=== PATIENT | male | born 1925 | race Caucasian/White ===

== ENCOUNTER 2017-04-13 09:00 | Inpatient (IN) | payer MEDICARE ==
[2017-04-13] MEDS ORDERED: TYLENOL 325 MG PO PRN (12:25)
[2017-04-13] MEDS ORDERED: Zofran 4 MG/2 ML VIAL IV PRN (12:25)
[2017-04-13 13:26] LABS: Mean Cell Volume 104.8 fl (78-100); Mean Corpuscular Hemoglobin 33.7 pg (26-32); Mean Platelet Volume 11.4 fl (6-9.5); Platelet Count 90 K/mm3 (150-450); Red Blood Count 2.49 M/mm3 (4.1-5.6); Red Cell Distribution Width 16.3 % (11.5-14.0); White Blood Count 6.3 K/mm3 (4.0-10.5)
[2017-04-13 14:15] LABS: ALBUMIN 3.8 g/dL (3.4-5.0); ANION GAP 18.1 MEQ/L (5-15); BILIRUBIN,TOTAL 0.8 mg/dL (0.2-1.0); Carbon Dioxide 20.9 mEq/L (21-32); Potassium 4.2 mEq/L (3.5-5.1); Total Protein 7.3 gm/dL (6.4-8.2)
[2017-04-13 14:31] LABS: BAND 3 % (0.0-2.0); Eosinophil 3 % (0.00-3.0); Total Cells Counted 100
[2017-04-13 14:32] LABS: ANISOCYTOSIS 1+
[2017-04-13 14:36] LABS: Ovalocytes 1+
--- NOTE | 2017-04-13 14:47 | XRAY ---
Indication: Short of breath. Comparison: January 13, 2017. PA/lateral chest unchanged again hyperinflated with chronic lung markings, right base atelectasis/scarring, cardiomegaly, CABG surgery, and left-sided dual-lead pacemaker. No new cardiopulmonary abnormalities.
[2017-04-13] MEDS: Protonix 40MG Tablet PO SCH (14:48)
[2017-04-13 14:51] LABS: Platelet Estimate DECREASED (NORMAL)
--- NOTE | 2017-04-13 15:51 | XRAY ---
Indication: Distended abdomen. Multiple contiguous axial images obtained through the abdomen and pelvis without contrast as ordered. Comparison: July 05, 2008. Lung bases demonstrates new cardiomegaly with small bibasilar effusions/atelectasis and interstitial edema. There is new small pelvic free fluid and tiny fluid along both colic gutters. No walled off fluid collection or free air. Stomach is moderately distended with food. Noncontrasted bowel loops appear nonobstructed. Again scattered colonic diverticulosis. Appendix not seen. Gallbladder is now moderately distended without gallstones or abnormal biliary distention. There are again 2 hepatic cysts, largest in the left lobe measuring 2 cm. Again hepatic/splenic calcified granulomas. Right kidney now appears atrophic. Remaining liver, gallbladder, pancreas, spleen, adrenal glands, kidneys, ureters, and bladder appear unremarkable for noncontrast exam. Progressive worsening severe arteriosclerotic calcifications including both intra-and extrarenal arteries. There may be high-grade stenosis/occlusion of the right main renal artery which could explain renal atrophy. New right external iliac stent graft. Lack of IV contrast precludes evaluation for stent patency. Osseous structures intact with progressive worsening degenerative changes throughout the spine and new remote-appearing L1 inferior endplate fracture with approximately 25% height loss. Again small fatty left inguinal hernia. Impression: 1. New cardiomegaly with bibasilar effusions and interstitial edema. Rule out cardiac decompensation. 2. New small abdominal/pelvic free fluid that may or may not be related to cardiac decompensation. 3. Distended gallbladder. Gallbladder sonogram may yield further information if clinically warranted. 4. Again incidental hepatic cysts, colonic diverticulosis, and fatty left inguinal hernia. 5. Severely worsening arteriosclerotic disease with probable high-grade stenosis/occlusion of the right main renal artery with subsequent right renal atrophy. 6. New finding for remote L1 inferior endplate fracture. CT DI 16.28
[2017-04-13] MEDS ORDERED: Lasix 40 MG/4 ML IV ONE (17:44)
--- NOTE | 2017-04-13 17:54 | PCM.HP ---
History of Present Illness - Chief Complaint Chief Complaint: weakness, anemia, shortness of breath Date: 04/13/17 History of Present Illness: is a 89 year old male. He has been feeling increasingly weak and short of breath with exertion the last several weeks. He follows with weakly hgb levels. Last week he had some diarrhea and this improved but then his abdomen has been more distended. he has no chest pain no nausea or vomiting still some tenderness intermittently in the abdomen. no fever or chills. He has a high salt diet as he lives alone and eats take out. He ate [employer] food then ham and beans before the symptoms seemed to worsen and he reports drinking "lots of water to try to feel better" - Review of Systems Constitutional: Fatigue, Weakness, No Fever, No Chills Eyes: No Symptoms Ears, Nose, & Throat: No Symptoms Respiratory: No Cough, No Short Of Breath Cardiac: Edema, No Chest Pain, No Syncope Abdominal/Gastrointestinal: Abdominal Pain, No Nausea, No Vomiting, No Diarrhea Genitourinary Symptoms: No Dysuria, No Frequency, No Hematuria, No Urgency, No Urinary Retention, No Flank Pain Musculoskeletal: No Back Pain, No Neck Pain Skin: No Rash Neurological: No Dizziness, No Focal Weakness, No Sensory Changes Psychological: No Symptoms Endocrine: No Symptoms Hematologic/Lymphatic: No Symptoms Immunological/Allergic: No Symptoms Medications & Allergies Home Medications: Home Medication List Nifedipine [Nifedipine ER] 60 mg PO HS 04/04/14 [History Confirmed 04/13/17] Metoprolol Tartrate 25 mg [Lopressor 25MG Tab] 2 tab PO BID 05/29/14 [ History Confirmed 04/13/17] Clopidogrel Bisulfate 75 mg [PLAVIX 75 MG Tablet] 37.5 mg PO DAILY [History Confirmed 04/13/17] Isosorbide Mononitrate 30 mg [Imdur 30 MG] 30 mg PO LUNCH 03/27/15 [ History Confirmed 04/13/17] Simvastatin [Zocor] 20 mg PO HS 10/26/15 [History Confirmed 04/13/17] Allopurinol 100 mg [Zyloprim 100 mg] 2 tab PO 1200 11/07/16 [History Confirmed 04/13/17] B2/Vit A,C & E/Lut/Zeaxanth/Mn [Icaps Tablet] 1 each PO DAILY 04/13/17 [History Confirmed 04/13/17] Furosemide 40 mg [Lasix 40 MG] 2 tab PO DAILY 04/13/17 [History Confirmed 04/13/17] Vitamin E 1,000 unit PO 1200 04/13/17 [History Confirmed 04/13/17] Allergies/Adverse Reactions: Allergies Allergy/AdvReac Type Severity Reaction Status Date / Time midazolam HCl [From Versed] Allergy Mild Hives Verified 04/13/17 12:41 Sulfa (Sulfonamide Allergy Mild Hives Verified 04/13/17 12:41 Antibiotics) [Sulfa(Sulfonamide Antibiotics)] - Past Medical History Past Medical History: Yes Neurological History: No Pertinent History ENT History: Cataracts, Macular Degeneration Cardiac History: Angina, Arrhythmia, High Cholesterol, Hypertension Respiratory History: Sleep Apnea Endocrine Medical History: No Pertinent History Musculoskelatal History: Other GI Medical History: Diverticulitis History: Renal Disease Pyscho-Social History: No Pertinent History Male Reproductive Disorders: No Pertinent History Comment: jayce cataract removal - Past Surgical History Past Surgical History: Yes Neuro Surgical History: No Pertinent History Cardiac History: CABG, Pacemaker Respiratory Surgery: No Pertinent History GI Surgical History: No Pertinent History Genitourinary Surgical Hx: No Pertinent History Musculskeletal Surgical Hx: Orthopedic Surgery Male Surgical History: No Pertinent History Other Surgical History: bilat rotator cuff. vein surgery-groin. 'kidney tube repaired'-1968. double hernia repair - Social History Smoking Status: Former smoker Exposure to second hand smoke: No Alcohol: None Drug Use: none - Physical Exam Vital Signs: Vital Signs - 24 hr Temp Pulse Resp BP BP Pulse Ox 04/13/17 16:00 97.9 F 60 18 155/68 94 L 04/13/17 12:33 97.5 F 75 18 182/85 96 04/13/17 12:25 97.5 F 61 20 152/85 96 General Appearance: no apparent distress, alert Neurologic Exam: alert, oriented x 3, cooperative, normal mood/affect, nml cerebellar function, nml station & gait, sensation nml, No motor deficits Eye Exam: PERRL/EOMI, eyes nml inspection, pale conjunctivae, No scleral icterus Ears, Nose, Throat Exam: normal ENT inspection, pharynx normal, moist mucous membranes Neck Exam: normal inspection, non-tender, supple, full range of motion Respiratory Exam: crackles/rales (bibasilar), No respiratory distress Cardiovascular Exam: regular rate/rhythm, normal heart sounds, normal peripheral pulses Gastrointestinal/Abdomen Exam: soft, normal bowel sounds, tenderness (mild left lower quarant), distention, No mass, No guarding, No ecchymosis, No rebound Back Exam: normal inspection, normal range of motion, No CVA tenderness, No vertebral tenderness Extremity Exam: normal inspection, pedal edema Skin Exam: normal color, warm, dry, No rash Lymphatic Exam: No adenopathy Results - Labs Lab/Micro Results: Lab Results-Last 24 Hours 04/13/17 04/13/17 04/13/17 Range/Units 13:14 13:14 13:14 WBC 6.3 (4.0-10.5) K/mm3 RBC 2.49 L (4.1-5.6) M/mm3 Hgb 8.4 L (12.5-18.0) gm/dl Hct 26.1 L (42-50) % MCV 104.8 H (78-100) fl MCH 33.7 H (26-32) pg MCHC 32.2 (32-36) g/dl RDW 16.3 H (11.5-14.0) % Plt Count 90 L (150-450) K/mm3 MPV 11.4 H (6-9.5) fl Segmented Neutrophils 85 H (36.-66.) % Band Neutrophils 3 H (0.0-2.0) % Lymphocytes (Manual) 8 L (24-44) % Monocytes (Manual) 1 (0.0-12.0) % Eosinophils (Manual) 3 (0.00-3.0) % Differential Comment ABNORMAL Platelet Estimate DECREASED (NORMAL) Anisocytosis 1+ Ovalocytes 1+ Sodium 139 (136-145) mEq/L Potassium 4.2 (3.5-5.1) mEq/L Chloride 104 (98-107) mEq/L Carbon Dioxide 20.9 L (21-32) mEq/L Anion Gap 18.1 H (5-15) MEQ/L BUN 78 H (9-20) mg/dL Creatinine 3.84 H (0.55-1.30) mg/dl Estimated GFR 16 ML/MIN Glucose 90 (70-110) MG/DL Calcium 9.1 (8.5-10.1) mg/dL Total Bilirubin 0.80 (0.2-1.0) mg/dL AST 24 (15-37) U/L ALT 25 (12-78) U/L Alkaline Phosphatase 64 (46-116) U/L Serum Total Protein 7.3 (6.4-8.2) gm/dL Albumin 3.8 (3.4-5.0) g/dL ABO Group A Rh Factor POSITIVE Antibody Screen (NEGATIVE) - Radiology Impressions Radiology Exams & Impressions: Radiology Procedures Category Date Time Status ABDOMEN AND PELVIS W/0 CONTRAS [CT] Urgent Exams 04/13/17 14:52 Completed CHEST 2 VIEWS (PA AND LAT) Stat Exams 04/13/17 Completed - Other Procedures and Tests Respiratory Therapy 04/13/17 12:25 Oxygen NASAL CANNULA 2 lpm Assessment/Plan (1) Volume overload Current Visit: Yes Status: Acute Assessment & Plan: suspected combined acute on chronic renal failure and acute on chronic heart failure with high salt diet with increased fluid intake as well will consult his regular digital associate Dr. Molina talked with Mr. Olea and his daughter about options including trial of medication for removal of fluid versus dialysis, He wants to do anything possible to not have to have dialysis he states but did not rule it out if he had to. Insert Pierre monitor I/O Na restricted diet try dose of iv lasix monitor labs currently he is doing well on room air and in no acute distress discussed if no response or worsening would require transfer to facility capable of dialysis he expressed understanding and wished to try the iv lasix despite risk of it worsening his renal failure. Code(s): E87.70 - FLUID OVERLOAD, UNSPECIFIED (2) Acute on chronic renal failure Current Visit: Yes Status: Acute Code(s): N17.9 - ACUTE KIDNEY FAILURE, UNSPECIFIED; N18.9 - CHRONIC KIDNEY DISEASE, UNSPECIFIED (3) Anemia Current Visit: Yes Status: Chronic Assessment & Plan: received aranesp last Thursday Code(s): D64.9 - ANEMIA, UNSPECIFIED (4) Thrombocytopenia Current Visit: Yes Status: Acute (5) Coronary artery disease Current Visit: Yes Status: Chronic Code(s): I25.10 - ATHSCL HEART DISEASE OF [place] CORONARY ARTERY W/O ANG PCTRS (6) Congestive heart failure Current Visit: Yes Status: Chronic Qualifiers: Congestive heart failure type: combined Congestive heart failure chronicity : acute on chronic Qualified Code(s): I50.43 - Acute on chronic combined systolic (congestive) and diastolic (congestive) heart failure Assessment & Plan: check echo with the fluid overload follows with Dr. Terry Code(s): I50.9 - HEART FAILURE, UNSPECIFIED (7) Chronic atrial fibrillation Current Visit: Yes Status: Chronic Assessment & Plan: was unable to tolerate anticoagulants in the past. had the option of atrial appendage closure in the past and elected not to proceed with this follows with Dr. Terry Code(s): I48.2 - CHRONIC ATRIAL FIBRILLATION
[2017-04-13] MEDS: xanAX 0.5 MG PO PRN (17:56)
[2017-04-13 20:31] LABS: Bilirubin NEGATIVE (NEGATIVE); Blood NEGATIVE Ery/ul (0-5); COMPLETE URINE MICROSCOPIC? YES; Collection Type CATH; Glucose NEGATIVE (NEGATIVE); Leukocyte Esterase NEGATIVE (NEGATIVE)
[2017-04-13 20:32] LABS: Bacteria RARE /HPF (NEGATIVE); Epithelial Cells RARE /HPF (FEW)
[2017-04-13] MEDS: Lopressor 50 MG PO SCH (21:29)
[2017-04-13] MEDS: ZOCOR 20MG PO SCH (21:29)
[2017-04-13] MEDS ORDERED: Adalat CC 30 MG TABLET PO SCH (22:00)
[2017-04-13] MEDS ORDERED: NIFEDIPINE 60 MG PO SCH (22:00)
[2017-04-14] MEDS: xanAX 0.5 MG PO PRN (00:17)
[2017-04-14 05:32] LABS: Mean Cell Volume 105.9 fl (78-100); Mean Corpuscular Hemoglobin 34.2 pg (26-32); Mean Platelet Volume 11.8 fl (6-9.5); Platelet Count 80 K/mm3 (150-450); Red Blood Count 2.19 M/mm3 (4.1-5.6); Red Cell Distribution Width 16.6 % (11.5-14.0); White Blood Count 5.9 K/mm3 (4.0-10.5)
[2017-04-14 05:59] LABS: ANION GAP 16.6 MEQ/L (5-15); Carbon Dioxide 21.9 mEq/L (21-32); Potassium 4.1 mEq/L (3.5-5.1)
[2017-04-14] MEDS: Lasix 40 MG/4 ML IV SCH ×4 (08:44→18:29)
[2017-04-14] MEDS: PLAVIX 75 MG Tablet PO SCH (08:44)
[2017-04-14] MEDS: Lopressor 50 MG PO SCH ×2 (08:45→21:52)
[2017-04-14] MEDS: Ocuvite Tablet PO SCH (08:45)
[2017-04-14] MEDS: Protonix 40MG Tablet PO SCH (08:45)
--- NOTE | 2017-04-14 09:21 | ECHO ---
DATE OF TEST: 04/14/2017 INDICATION: Congestive heart failure. FINDINGS: 1) Mild concentric left ventricular hypertrophy with normal left ventricular cavity size and mildly reduced left ventricular systolic function. Overall left ventricular ejection fraction is 40-45%. There is a paradoxical septal wall motion that is possibly consistent with postoperative state. Right ventricle is mildly dilated with preserved left ventricular systolic function. There is pacemaker wire in the right ventricle. 2) Moderate left atrial enlargement and moderate right atrial enlargement. There is a pacemaker wire in the right atrium. 3) Mild mitral annulus calcification with moderate 2+ mitral regurgitation. Tricuspid valve is grossly normal with moderate 2+ tricuspid regurgitation and estimated PA systolic pressure of 48 mm of Mercury consistent with mild to moderate pulmonary hypertension. The aortic valve is not well visualized but valve excursion is normal. Mild 1+ aortic insufficiency was noted. Pulmonic valve is grossly normal with mild 1+ pulmonic insufficiency. 4) No pericardial effusion. 5) Inferior vena cava was not well seen. IMPRESSION: 1) TECHNICALLY FAIR STUDY. 2) MILD CONCENTRIC LEFT VENTRICULAR HYPERTROPHY WITH MILDLY REDUCED LEFT VENTRICULAR SYSTOLIC FUNCTION. OVERALL LEFT VENTRICULAR EJECTION FRACTION IS 40-45%. 3) PACEMAKER WIRE IS NOTED IN THE RIGHT VENTRICLE. 4) MODERATE 2+ MITRAL REGURGITATION AND MODERATE 2+ TRICUSPID REGURGITATION WITH MILD TO MODERATE PULMONARY HYPERTENSION AND ESTIMATED PA SYSTOLIC PRESSURE OF 48 MM OF MERCURY.
[2017-04-14] MEDS ORDERED: [UNRECOGNIZED DRUG - OTHER] PO SCH (10:00)
[2017-04-14] MEDS ORDERED: ZYLOPRIM 100 MG PO SCH (12:00)
[2017-04-14] MEDS: Imdur 30 MG PO SCH (12:09)
[2017-04-14] MEDS: Apresoline 25 MG TABLET PO SCH ×2 (14:56→21:52)
--- NOTE | 2017-04-14 15:27 | CONS ---
CONSULT DATE: 04/14/2017 REASON FOR CONSULT: Chronic kidney disease and anemia. HISTORY: The patient is an 89 year-old gentleman who follows with me for chronic kidney disease stage IV. His chronic kidney disease has been thought to be related to hypertensive nephrosclerosis and atherosclerotic vascular disease related to nephrosclerosis. His renal function has been progressively getting worse. He also has some chronic anemia. The anemia has been thought to be related to multiple factors including due to GI related small blood vessels and small bowel blood loss and AVM and also related to chronic kidney disease. He has had some component of iron deficiency as well in the past. He does receive periodic IV iron infusions. His most recent dose of Aranesp 100 last week. His glomerular filtration rate has been around 20 or so over the recent few months. He presented to the emergency room here at [facility] with complaints of weakness and shortness of breath with exertion the last few weeks. He had some diarrhea which improved and has not been distended, has no chest pain. He has a high salt diet. He lives alone. He eats takeout. He ate [place] food and symptoms started to get worse. He said he drank a lot of water to try to feel better. On evaluation here he was found to have hemoglobin 8.9, BUN 78, creatinine 3.84 so he was admitted for further management. CT scan was suggestive of volume overload. REVIEW OF SYSTEMS: He has fatigue, malaise, complains of shortness of breath on minimal exertion. He denies any fever. All the systems reviewed and as listed. PAST MEDICAL HISTORY: Chronic kidney disease stage IV, hypertensive nephrosclerosis, hypertension, hyperlipidemia, hyperuricemia/gout, atrial fibrillation, coronary artery disease status post coronary artery bypass graft. PAST SURGICAL HISTORY: Pacemaker placement, coronary artery bypass graft, bilateral rotator cuff surgery, hand surgery, hernia repair. HOME MEDICATIONS: Per medication list. ALLERGIES: MIDAZOLAM, SULFA. SOCIAL HISTORY: Former smoker, denies any alcohol or substance abuse. He does use occasional alcohol though. FAMILY HISTORY: No history of chronic kidney disease in the family. PHYSICAL EXAMINATION: The patient is awake, alert, oriented, no acute distress. VITAL SIGNS: Temperature 97.9F, pulse , respiratory rate 18, blood pressure 125/68. Saturating 94%. HEENT: Normocephalic, nonicteric. NECK: No JVD. CHEST: Bibasilar rales, decreased breath sounds bilateral bases, occasional rhonchi, occasional wheeze. No use of accessory muscles. EXTREMITIES: 1 to 2+ peripheral edema on the right leg. Minimal edema in the left leg. ABDOMEN: Soft, nontender, positive bowel sounds. NEURO: Awake, alert, normocephalic. SKIN: Warm and dry. LAB DATA AND TESTS: Hemoglobin 7.5. Urine culture negative. BUN 78, creatinine 3.82. Occult stool negative. UA showed leukocytes esterase negative. Echo showed mild concentric left ventricular hypertrophy, left ventricular ejection fraction of 40-45%. Pacemaker wire noted in the right ventricle, moderate 2+ tricuspid regurgitation, mild to moderate pulmonary hypertension. CT scan showed new cardiomegaly, abdomen pelvic free fluid, distended gallbladder, worsening atherosclerotic disease and nephrosclerosis of right mid renal artery. ASSESSMENT AND PLAN: An 89 year-old gentleman with: 1) Acute kidney disease on top of underlying chronic kidney disease stage IV, underlying hypertension, atherosclerotic vascular disease, acute kidney disease likely secondary to blood loss and some progression of renal dysfunction. He may be approaching to stage V and ESRD and volume overload and other ongoing symptomology. Risks, benefits, options, alternatives were discussed with the patient. He wants to think about it. In the past he said he did not dialysis. I will continue to monitor him, follow up him closely and talk to his family more. 2) Anemia acute on chronic, multifactorial likely due to a combination of kidney disease related to anemia, related to some blood from AVM's in the small bowel and some possible iron deficiency. I will check is iron profile. Increased his Aranesp dose to 120 mcg once a week and monitor his hemoglobin once a week. 3) Congestive heart failure due to chronic systolic and diastolic valvular disease, atrial fibrillation, mitral and tricuspid regurgitation and pulmonary hypertension with volume overload. I will increase diuresis. I will order Lasix 40 mg IV every six hours. He is not a candidate for surgery because of poor renal function. I will monitor his volume status. 4) Hypertension, uncontrolled. I will add hydralazine as needed to control blood pressure and monitor him closely. Calcium supplements continued. Allopurinol although he would be better off on Probalan because of bone marrow suppression from Allopurinol but he has complained about the cost. 5) History of coronary artery disease. Plavix for hyperlipidemia, continue Simvastatin. Thank you for this consultation. Please do not hesitate to contact me.
--- NOTE | 2017-04-14 21:43 | PCM.NOTE ---
Date and Time: 04/14/172136 late entry note seen at 08:00 and 13:00 but Isaias is exceptionally slow today Subjective Assessment: ffeeling a little better today but still very weak felt some pressure in his abdomen today but had bm and feels better with that. It was soft no diarrhea. he has had good output with the Pierre. He denies chest pain. eating a little now. Objective Exam General Appearance: alert Neurologic Exam: oriented x 3, other (appears weak and pale) Skin Exam: warm, dry Neck Exam: normal inspection, non-tender, supple Respiratory Exam: crackles/rales (bibasilar rales) Cardiovascular Exam: regular rate/rhythm, murmur Gastrointestinal/Abdomen Exam: soft, normal bowel sounds, distention (mild) Extremity Exam: swelling (right lower extremity 1+), No calf tenderness OBJECTIVE DATA Vital Signs: Vital Signs - 24 hr Temp Pulse Resp BP BP Pulse Ox 04/14/17 20:00 98.5 F 60 18 161/70 95 04/14/17 19:13 98 04/14/17 16:00 16 04/14/17 15:00 98.4 F 60 16 144/65 152/85 95 04/14/17 11:50 98.3 F 60 18 180/75 95 04/14/17 06:35 97.6 F 60 18 160/69 91 L 04/14/17 04:00 98.1 F 62 18 94 L 04/14/17 00:00 97.7 F 61 18 156/70 95 Pain Assessment - Last Documented Pain Intensity 0 Pain Scale Used 0-10 Pain Scale Intake and Output: Intake & Output 04/12/17 04/13/17 04/14/17 04/15/17 11:59 11:59 11:59 11:59 Intake Total 700 Output Total 1850 1700 Balance -1150 -1700 Weight 64.41 kg Lab Results: Lab Results-Last 24 Hours 04/14/17 04/14/17 Range/Units 05:05 05:05 WBC 5.9 (4.0-10.5) K/mm3 RBC 2.19 L (4.1-5.6) M/mm3 Hgb 7.5 L (12.5-18.0) gm/dl Hct 23.2 L (42-50) % MCV 105.9 H (78-100) fl MCH 34.2 H (26-32) pg MCHC 32.3 (32-36) g/dl RDW 16.6 H (11.5-14.0) % Plt Count 80 L (150-450) K/mm3 MPV 11.8 H (6-9.5) fl Sodium 140 (136-145) mEq/L Potassium 4.1 (3.5-5.1) mEq/L Chloride 106 (98-107) mEq/L Carbon Dioxide 21.9 (21-32) mEq/L Anion Gap 16.6 H (5-15) MEQ/L BUN 78 H (9-20) mg/dL Creatinine 3.82 H (0.55-1.30) mg/dl Estimated GFR 16 ML/MIN Glucose 106 (70-110) MG/DL Calcium 9.0 (8.5-10.1) mg/dL Slides for Path Review YES Radiology Exams: Radiology Procedures Category Date Time Status ABDOMEN AND PELVIS W/0 CONTRAS [CT] Urgent Exams 04/13/17 14:52 Completed CHEST 2 VIEWS (PA AND LAT) Stat Exams 04/13/17 Completed ECHO W/2D AND DOPPLER [US] Routine Exams 04/14/17 09:00 Draft Assessment/Plan (1) Volume overload Current Visit: Yes Status: Acute Assessment & Plan: continue diuresis appreciate help with Dr. Wyatt repeat hgb in am transfuse <7 symptomatic anemia with ROLANAD and severe sob and weakness inability to walk more then a few feet due to severe dyspnea Code(s): E87.70 - FLUID OVERLOAD, UNSPECIFIED (2) Acute on chronic renal failure Current Visit: Yes Status: Acute Code(s): N17.9 - ACUTE KIDNEY FAILURE, UNSPECIFIED; N18.9 - CHRONIC KIDNEY DISEASE, UNSPECIFIED (3) Anemia Current Visit: Yes Status: Chronic Code(s): D64.9 - ANEMIA, UNSPECIFIED (4) Thrombocytopenia Current Visit: Yes Status: Acute (5) Coronary artery disease Current Visit: Yes Status: Chronic Code(s): I25.10 - ATHSCL HEART DISEASE OF [place] CORONARY ARTERY W/O ANG PCTRS (6) Congestive heart failure Current Visit: Yes Status: Chronic Qualifiers: Congestive heart failure type: combined Congestive heart failure chronicity : acute on chronic Qualified Code(s): I50.43 - Acute on chronic combined systolic (congestive) and diastolic (congestive) heart failure Code(s): I50.9 - HEART FAILURE, UNSPECIFIED (7) Chronic atrial fibrillation Current Visit: Yes Status: Chronic Code(s): I48.2 - CHRONIC ATRIAL FIBRILLATION
[2017-04-14] MEDS: ZOCOR 20MG PO SCH (21:52)
[2017-04-15] MEDS: Lasix 40 MG/4 ML IV SCH ×4 (00:07→18:33)
[2017-04-15 05:10] LABS: Mean Cell Volume 104.6 fl (78-100); Mean Corpuscular Hemoglobin 33.6 pg (26-32); Mean Platelet Volume 9.2 fl (6-9.5); Platelet Count 81 K/mm3 (150-450); Red Blood Count 2.38 M/mm3 (4.1-5.6); Red Cell Distribution Width 16.7 % (11.5-14.0); White Blood Count 5.4 K/mm3 (4.0-10.5)
[2017-04-15 05:33] LABS: ALBUMIN 3.3 g/dL (3.4-5.0); ANION GAP 14.1 MEQ/L (5-15); BILIRUBIN,TOTAL 0.9 mg/dL (0.2-1.0); Carbon Dioxide 25.2 mEq/L (21-32); Potassium 3.3 mEq/L (3.5-5.1); Total Protein 6.6 gm/dL (6.4-8.2)
--- NOTE | 2017-04-15 08:00 | PCM.NOTE ---
Date and Time: 04/15/17 0754 Subjective Assessment: had several large soft bowel movements yesterday and overall seems to be feeling a little better. He is still weak and short of breath and was unable to make it to the bathroom in time for one of the bowel movements despite assistance due to the weakness. Minimal activity increases his shortness of breath. Objective Exam General Appearance: no apparent distress, alert Neurologic Exam: alert, oriented x 3 Skin Exam: warm, dry, pale, No jaundice Eye Exam: PERRL, EOMI, eyes nml inspection, pale conjunctivae Ears, Nose, Throat Exam: normal ENT inspection Neck Exam: normal inspection, non-tender, supple, full range of motion Respiratory Exam: crackles/rales (bibasilar), No respiratory distress Cardiovascular Exam: regular rate/rhythm, murmur Gastrointestinal/Abdomen Exam: soft, normal bowel sounds, distention (improving) , No tenderness, No mass Extremity Exam: normal inspection, normal range of motion, pedal edema (1+ right lower extremity) Back Exam: normal inspection, normal range of motion, No CVA tenderness, No vertebral tenderness Male Genitalia Exam: deferred Rectal Exam: deferred OBJECTIVE DATA Vital Signs: Vital Signs - 24 hr Temp Pulse Resp BP BP Pulse Ox 04/15/17 07:37 97.9 F 60 18 166/69 96 04/15/17 04:00 98.5 F 63 18 157/68 97 04/15/17 00:00 98.9 F 60 20 163/70 96 04/14/17 20:00 98.5 F 60 18 161/70 95 04/14/17 19:13 98 04/14/17 16:00 16 04/14/17 15:00 98.4 F 60 16 144/65 152/85 95 04/14/17 11:50 98.3 F 60 18 180/75 95 Pain Assessment - Last Documented Pain Intensity 0 Pain Scale Used 0-10 Pain Scale Intake and Output: Intake & Output 04/12/17 04/13/17 04/14/17 04/15/17 11:59 11:59 11:59 11:59 Intake Total 700 Output Total 1850 3800 Balance -1150 -3800 Weight 64.41 kg Lab Results: Lab Results-Last 24 Hours 04/14/17 04/15/17 04/15/17 Range/Units 05:05 04:52 04:52 WBC 5.4 (4.0-10.5) K/mm3 RBC 2.38 L (4.1-5.6) M/mm3 Hgb 8.0 L (12.5-18.0) gm/dl Hct 24.9 L (42-50) % MCV 104.6 H (78-100) fl MCH 33.6 H (26-32) pg MCHC 32.1 (32-36) g/dl RDW 16.7 H (11.5-14.0) % Plt Count 81 L (150-450) K/mm3 MPV 9.2 (6-9.5) fl Sodium 142 (136-145) mEq/L Potassium 3.3 L (3.5-5.1) mEq/L Chloride 106 (98-107) mEq/L Carbon Dioxide 25.2 (21-32) mEq/L Anion Gap 14.1 (5-15) MEQ/L BUN 74 H (9-20) mg/dL Creatinine 3.61 H (0.55-1.30) mg/dl Estimated GFR 17 ML/MIN Glucose 96 (70-110) MG/DL Calcium 9.1 (8.5-10.1) mg/dL Magnesium 2.0 (1.8-2.4) mg/dL Total Bilirubin 0.90 (0.2-1.0) mg/dL AST 17 (15-37) U/L ALT 20 (12-78) U/L Alkaline Phosphatase 57 (46-116) U/L Serum Total Protein 6.6 (6.4-8.2) gm/dL Albumin 3.3 L (3.4-5.0) g/dL Slides for Path Review YES Radiology Exams: Radiology Procedures Category Date Time Status ABDOMEN AND PELVIS W/0 CONTRAS [CT] Urgent Exams 04/13/17 14:52 Completed ECHO W/2D AND DOPPLER [US] Routine Exams 04/14/17 09:00 Draft Assessment/Plan (1) Congestive heart failure Current Visit: Yes Status: Acute Qualifiers: Congestive heart failure type: combined Congestive heart failure chronicity : acute on chronic Qualified Code(s): I50.43 - Acute on chronic combined systolic (congestive) and diastolic (congestive) heart failure Assessment & Plan: improving slowly with diuresis no input recorded no new weight discussed with nursing will start recording input and check daily weight good urine output overnight improving volume status Hgb at 8.0 and very symptomatic still aranesp today per Dr. Wyatt continue lasix iv q6h hypokalemia add potassium low dose repeat in am repeat hgb in am remains symptomatic with chf, cad, and darren consider tranfuse in 7's if lack of improvement with the diuresis. Code(s): I50.9 - HEART FAILURE, UNSPECIFIED (2) Acute on chronic renal failure Current Visit: Yes Status: Acute Code(s): N17.9 - ACUTE KIDNEY FAILURE, UNSPECIFIED; N18.9 - CHRONIC KIDNEY DISEASE, UNSPECIFIED (3) Volume overload Current Visit: Yes Status: Acute Code(s): E87.70 - FLUID OVERLOAD, UNSPECIFIED (4) Anemia Current Visit: Yes Status: Chronic Code(s): D64.9 - ANEMIA, UNSPECIFIED (5) Thrombocytopenia Current Visit: Yes Status: Acute (6) Coronary artery disease Current Visit: Yes Status: Chronic Code(s): I25.10 - ATHSCL HEART DISEASE OF [place] CORONARY ARTERY W/O ANG PCTRS (7) Chronic atrial fibrillation Current Visit: Yes Status: Chronic Code(s): I48.2 - CHRONIC ATRIAL FIBRILLATION
[2017-04-15] MEDS ORDERED: Aranesp 60 MCG SQ SCH (10:00)
[2017-04-15] MEDS: Apresoline 25 MG TABLET PO SCH ×3 (10:10→21:42)
[2017-04-15] MEDS: Klor Con 10 MEQ PO SCH ×2 (10:11→21:42)
[2017-04-15] MEDS: Protonix 40MG Tablet PO SCH (10:13)
[2017-04-15] MEDS: PLAVIX 75 MG Tablet PO SCH (10:13)
[2017-04-15] MEDS: Lopressor 50 MG PO SCH ×2 (10:13→21:45)
[2017-04-15] MEDS: Ocuvite Tablet PO SCH (10:14)
[2017-04-15] MEDS: NON-FORMULARY ITEM PO SCH (11:12)
[2017-04-15] MEDS: Imdur 30 MG PO SCH (11:56)
[2017-04-15] MEDS: ZOCOR 20MG PO SCH (21:41)
[2017-04-15 23:46] VITALS: PULSE 60
[2017-04-16] MEDS: Lasix 40 MG/4 ML IV SCH ×3 (00:10→11:38)
[2017-04-16] MEDS: xanAX 0.5 MG PO PRN (00:10)
[2017-04-16 05:45] LABS: Mean Cell Volume 103.1 fl (78-100); Mean Platelet Volume 8.8 fl (6-9.5); Platelet Count 93 K/mm3 (150-450); Red Blood Count 2.59 M/mm3 (4.1-5.6); Red Cell Distribution Width 16.5 % (11.5-14.0); White Blood Count 6.2 K/mm3 (4.0-10.5)
[2017-04-16 06:08] LABS: Mean Corpuscular Hemoglobin 33.5 pg (26-32)
[2017-04-16 06:09] LABS: ALBUMIN 3.2 g/dL (3.4-5.0); ANION GAP 15.7 MEQ/L (5-15); BILIRUBIN,TOTAL 0.9 mg/dL (0.2-1.0); Carbon Dioxide 25.5 mEq/L (21-32); MAGNESIUM 1.7 mg/dL (1.8-2.4); Potassium 3.5 mEq/L (3.5-5.1); Total Protein 6.8 gm/dL (6.4-8.2)
--- NOTE | 2017-04-16 08:27 | PCM.DCORD ---
- Discharge Discharge Date: 04/16/17 Disposition: Home, Self-Care Condition: Stable Prescriptions: New Hydralazine HCl 50 mg PO TID #90 tablet Continue Metoprolol Tartrate 25 mg [Lopressor 25MG Tab] 2 tab PO BID Isosorbide Mononitrate 30 mg [Imdur 30 MG] 30 mg PO LUNCH Clopidogrel Bisulfate 75 mg [PLAVIX 75 MG Tablet] 37.5 mg PO DAILY Simvastatin [Zocor] 20 mg PO HS Vitamin E 1,000 unit PO 1200 B2/Vit A,C & E/Lut/Zeaxanth/Mn [Icaps Tablet] 1 each PO DAILY Furosemide 40 mg [Lasix 40 MG] 2 tab PO DAILY Discontinued Nifedipine [Nifedipine ER] 60 mg PO HS Allopurinol 100 mg [Zyloprim 100 mg] 2 tab PO 1200 Additional Instructions: HAVE LABS DONE [address] ALBARRAN VISIT CBC, CMP AND MAG Follow up with: RON MCLAUGHLIN [Primary Care Provider] - 1 Week REJI ALBARRAN [CONSULTING PHYSICIAN] - 04/23/17 10:40 am (FOLLOW WITH DR ALBARRAN ON 04/28/17 AT 12.50 HAVE LABS DONE 2 DAYS BEFORE APPT CBC, CMP, MAG. ORDER ON RX ON CHART) Forms: Patient Portal Information
[2017-04-16] MEDS: Ocuvite Tablet PO SCH (09:08)
[2017-04-16] MEDS: PLAVIX 75 MG Tablet PO SCH (09:08)
[2017-04-16] MEDS: Protonix 40MG Tablet PO SCH (09:08)
[2017-04-16] MEDS: Apresoline 25 MG TABLET PO SCH (09:08)
[2017-04-16] MEDS: Lopressor 50 MG PO SCH (09:08)
[2017-04-16] MEDS: Klor Con 10 MEQ PO SCH (09:08)
[2017-04-16] MEDS: NON-FORMULARY ITEM PO SCH (09:09)
[2017-04-16 11:03] VITALS: BP 152/69; O2SAT 99
[2017-04-16] MEDS: Imdur 30 MG PO SCH (11:38)
--- NOTE | 2017-04-17 01:20 | PCM.DS ---
Discharge Summary Date of Admission: 04/14/17 09:00 Date of Discharge: 04/16/17 Admitting Physician: RON MCLAUGHLIN Consults: Consults on Case 04/13/17 17:45 Consult Nephrology ROUTINE Primary Care Provider: RON MCLAUGHLIN Allergies Allergies midazolam HCl [From Versed] Allergy (Mild, Verified 04/13/17 12:41) Hives Sulfa (Sulfonamide Antibiotics) [Sulfa(Sulfonamide Antibiotics)] Allergy (Mild, Verified 04/13/17 12:41) [facility] Summary - Hospital Course Hospital Course: He presented to the clinic with worsening shortness of breath and weakness. He was admitted for sever worsening symptoms and found to have fluid overload, anemia, acute on chronic systolic and diastolic chf, ascitis and pleural effusions. He was treated with Pierre and IV diuresis and lost >5kg during the hospitalization with improvement in symptoms. His living advisor was consulted Dr. Molina who increased his aranesp to 120 mcg weekly and received a dose on . He had negative occult blood in his stool and his hgb was stable an slightly increasing. up to 8.7. He was still having weakness but declined needs for further rehabilitation stay or home health. He has close follow up with nephrology and follow up is previously scheduled with his taxi servicer as well. His calcium channel cleo was changed to hydralazine his allopurinol was held as well due to concern for possible bone marrow suppression. He will continue further discussions with Dr. Molina over possible future assessment for dialysis needs for now was improved with the iv lasix which he was receiving 40 mg q6h iv while inpatient. There was slight improvement in GFR at time of discharge as well. - Vitals & Intake/Output Vital Signs: Vital Signs Temperature 97.8 F 04/16/17 11:00 Pulse Rate 60 04/16/17 11:00 Respiratory Rate 18 04/16/17 11:00 Blood Pressure 152/69 04/16/17 11:00 O2 Sat by Pulse Oximetry 99 04/16/17 11:00 Intake & Output: Intake & Output 04/14/17 04/15/17 04/16/17 04/17/17 11:59 11:59 11:59 11:59 Intake Total 926 864 2502 360 Output Total 1850 4500 2100 400 Balance -1150 -3623 -1060 -40 Weight 64.41 kg 61.405 kg 59.92 kg 59.92 kg - Lab Result Diagrams: 04/16/17 05:15 04/16/17 05:15 Lab Results-Last 24 Hrs: Lab Results-Last 24 Hours 04/14/17 04/16/17 04/16/17 Range/Units 05:05 05:15 05:15 WBC 5.9 6.2 (4.0-10.5) K/mm3 RBC 2.19 L 2.59 L (4.1-5.6) M/mm3 Hgb 7.5 L 8.7 L (12.5-18.0) gm/dl Hct 23.2 L 26.7 L (42-50) % MCV 105.9 H 103.1 H (78-100) fl MCH 34.2 H 33.5 H (26-32) pg MCHC 32.3 32.6 (32-36) g/dl RDW 16.6 H 16.5 H (11.5-14.0) % Plt Count 80 L 93 L (150-450) K/mm3 MPV 11.8 H 8.8 (6-9.5) fl Smear Path Review Sodium 142 (136-145) mEq/L Potassium 3.5 (3.5-5.1) mEq/L Chloride 104 (98-107) mEq/L Carbon Dioxide 25.5 (21-32) mEq/L Anion Gap 15.7 H (5-15) MEQ/L BUN 76 H (9-20) mg/dL Creatinine 3.26 H (0.55-1.30) mg/dl Estimated GFR 19 ML/MIN Glucose 100 (70-110) MG/DL Calcium 9.0 (8.5-10.1) mg/dL Magnesium 1.7 L (1.8-2.4) mg/dL Total Bilirubin 0.90 (0.2-1.0) mg/dL AST 21 (15-37) U/L ALT 21 (12-78) U/L Alkaline Phosphatase 55 (46-116) U/L Serum Total Protein 6.8 (6.4-8.2) gm/dL Albumin 3.2 L (3.4-5.0) g/dL Slides for Path Review YES YES Micro Results-Entire Visit: Microbiology 04/13/17 18:30 Urine Culture - Final Catherized NO GROWTH - Procedures and Test Procedures and Tests throughout Hospitalization: Therapy Orders & Screens 04/13/17 12:25 EKG STAT Comment: Oxygen NASAL CANNULA 2 lpm Comment: 04/14/17 21:23 BiPap/CPAP Assessment ROUTINE Comment: CPAP 6 AT NIGHT PER PT'S HOME USE Diagnosis: ACUTE RENAL FAILURE Discharge Exam General Appearance: no apparent distress, alert Neurologic Exam: alert, oriented x 3, cooperative, normal mood/affect, nml cerebellar function, sensation nml, No motor deficits Skin Exam: normal color, warm, dry Eye Exam: PERRL, EOMI, eyes nml inspection Ears, Nose, Throat Exam: normal ENT inspection, pharynx normal, moist mucous membranes Neck Exam: normal inspection, non-tender, supple, full range of motion Respiratory Exam: normal breath sounds, lungs clear, No respiratory distress Cardiovascular Exam: regular rate/rhythm, murmur Gastrointestinal/Abdomen Exam: soft, No tenderness, No mass Extremity Exam: normal inspection, normal range of motion Back Exam: normal inspection, normal range of motion, No CVA tenderness, No vertebral tenderness Male Genitalia Exam: deferred Rectal Exam: deferred Final Diagnosis/Problem List - Final Discharge Diagnosis/Problem (1) Congestive heart failure Status: Acute (2) Acute on chronic renal failure Status: Acute (3) Volume overload Status: Acute (4) Anemia Status: Chronic (5) Thrombocytopenia Status: Chronic (6) Coronary artery disease Status: Chronic (7) Chronic atrial fibrillation Status: Chronic - Discharge Discharge Date: 04/16/17 Disposition: Home, Self-Care Condition: Stable Prescriptions: New Hydralazine HCl 50 mg PO TID #90 tablet Continue Metoprolol Tartrate 25 mg [Lopressor 25MG Tab] 2 tab PO BID Isosorbide Mononitrate 30 mg [Imdur 30 MG] 30 mg PO LUNCH Clopidogrel Bisulfate 75 mg [PLAVIX 75 MG Tablet] 37.5 mg PO DAILY Simvastatin [Zocor] 20 mg PO HS Vitamin E 1,000 unit PO 1200 B2/Vit A,C & E/Lut/Zeaxanth/Mn [Icaps Tablet] 1 each PO DAILY Furosemide 40 mg [Lasix 40 MG] 2 tab PO DAILY Discontinued Nifedipine [Nifedipine ER] 60 mg PO HS Allopurinol 100 mg [Zyloprim 100 mg] 2 tab PO 1200 Instructions: Kidney Failure, Heart Failure Additional Instructions: HAVE LABS DONE BEFORE DR MOLINA VISIT, CBC, CMP AND MAG Follow up with: RON MCLAUGHLIN [Primary Care Provider] - 04/27/17 11:15 am REJI MOLINA [CONSULTING PHYSICIAN] - 05/05/17 11:40 am (FOLLOW WITH DR MOLINA ON 05/05/17 AT 11:40 AT [facility]. HAVE LABS DONE 2 DAYS BEFORE APPT CBC, CMP, MAG. ORDER ON RX ON CHART) Forms: Patient Portal Information
== END 2017-04-16 14:10 | disposition home or self-care (01) | DRG 292 ==
LOC: MED SURG 09:00 → OBSVTOIN 04-14 09:00
PROVIDERS: ADMIT Family Medicine; ATTEND Family Medicine
DX: I50.43 Acute on chronic combined systolic (congestive) and diastolic (congestive) heart failure (principal); N17.9 Acute kidney failure, unspecified; N18.4 Chronic kidney disease, stage 4 (severe); I25.810 Atherosclerosis of coronary artery bypass graft(s) without angina pectoris; I12.9 Hypertensive chronic kidney disease with stage 1 through stage 4 chronic kidney disease, or unspecified chronic kidney disease; D63.1 Anemia in chronic kidney disease; D69.6 Thrombocytopenia, unspecified; E78.5 Hyperlipidemia, unspecified; M10.9 Gout, unspecified; G47.30 Sleep apnea, unspecified; I51.7 Cardiomegaly; Z79.899 Other long term (current) drug therapy; Z95.0 Presence of cardiac pacemaker; I34.0 Nonrheumatic mitral (valve) insufficiency; I07.1 Rheumatic tricuspid insufficiency
CPT/HCPCS: 36415; 71020; 74176; 80048; 80053; 81000; 82272; 83735; 85025; 85027; 86850; 86900; 86901; 87086; 93005; 93268; 93306; 94660; 94760; G0378; J0881; J1940; A9270-GY

== ENCOUNTER 2017-04-24 13:08 | Emergency (ER) | payer MEDICARE ==
--- NOTE | 2017-04-24 13:40 | ERPHSYRPT ---
- History of Present Illness Time Seen by Provider: 04/24/17 13:28 Source: patient Exam Limitations: no limitations Patient Subjective Stated Complaint: pt here for head pain and and right ear for a couple days, has contusion to back of head Triage Nursing Assessment: pt alert, answers all questions correct, walked in, resp easy, pearson well, edema to right lower leg Physician History: This is an 89-year-old white male brought by his daughter with complaint of a right sided headache posterior to the right ear symptoms for 2-3 days. Patient's daughter feels like she might have a head contusion to she can feel a prominence on the back of his head. States he was at the infusion center where he is seen to receive Aranesp shot and related his complaints. And he was apparently told to present to this emergency room. Patient doesn't feel like he had fallen or hit his head however his daughter thinks he might have. Patient arrives he is alert oriented 3. . Past medical history includes angina, arrhythmia, hyper lipidemia, hypertension, sleep apnea, diverticulitis, renal disease, cataract removal he's had macular degeneration, patient with a history of congestive heart failure Past surgical history includes cataracts, CABG, pacer, orthopedic surgery, bilateral rotator cuff, vein surgeries in the groin, kidney tube repaired, double hernia repair. Patient was just recently released secondary to congestive heart failure last Thursday. Timing/Duration: day(s) (2-3 days) Severity: moderate Modifying Factors: Improves With: nothing Associated Symptoms: headaches, No nausea, No vomiting, No abdominal pain, No shortness of breath, No heartburn, No diaphoresis, No cough, No chills, No chest pain, No fever, No loss of appetite, No malaise, No rash, No syncope, No seizure, No weakness Allergies/Adverse Reactions: midazolam HCl [From Versed] Allergy (Mild, Verified 04/24/17 13:22) Hives Sulfa (Sulfonamide Antibiotics) [Sulfa(Sulfonamide Antibiotics)] Allergy (Mild, Verified 04/24/17 13:22) Hives Home Medications: Metoprolol Tartrate 25 mg [Lopressor 25MG Tab] 2 tab PO BID 05/29/14 [ History] Clopidogrel Bisulfate 75 mg [PLAVIX 75 MG Tablet] 37.5 mg PO DAILY [History] Isosorbide Mononitrate 30 mg [Imdur 30 MG] 30 mg PO LUNCH 03/27/15 [History ] Simvastatin [Zocor] 20 mg PO HS 10/26/15 [History] B2/Vit A,C & E/Lut/Zeaxanth/Mn [Icaps Tablet] 1 each PO DAILY 04/13/17 [History] Furosemide 40 mg [Lasix 40 MG] 2 tab PO DAILY 04/13/17 [History] Vitamin E 1,000 unit PO 1200 04/13/17 [History] Hx Tetanus, Diphtheria Vaccination/Date Given: Yes Hx Influenza Vaccination/Date Given: No Hx Pneumococcal Vaccination/Date Given: Yes Immunizations Up to Date: Yes - Review of Systems Constitutional: No Fever, No Chills Eyes: No Symptoms Ears, Nose, & Throat: Ear Pain (right ear pain, pain posterior to right ear), No Ear Discharge, No Hearing Changes, No Tinnitus, No Nose Pain, No Nose Congestion, No Nose Discharge, No Sinus Drainage, No Epistaxis, No Mouth Pain, No Mouth Swelling, No Loose Teeth, No Throat Pain, No Throat Swelling, No Hoarse , No Painful Swallowing, No Snoring, No Stridor Respiratory: No Cough, No Dyspnea Cardiac: No Chest Pain, No Edema, No Syncope Abdominal/Gastrointestinal: No Abdominal Pain, No Nausea, No Vomiting, No Diarrhea Genitourinary Symptoms: No Dysuria Musculoskeletal: No Back Pain, No Neck Pain Skin: No Rash Neurological: Headache, No Dizziness, No Focal Weakness, No Gait Changes, No Irritability, No Lethargy, No Paralysis, No Parasthesia, No Seizure, No Sensory Changes, No Speech Changes, No Tics, No Tremors, No Vertigo Psychological: No Symptoms Endocrine: No Symptoms All Other Systems: Reviewed and Negative - Past Medical History Pertinent Past Medical History: Yes Neurological History: No Pertinent History ENT History: Cataracts, Macular Degeneration Cardiac History: Angina, Arrhythmia, Congestive Heart Failure, High Cholesterol , Hypertension Respiratory History: Sleep Apnea Endocrine Medical History: No Pertinent History Musculoskeletal History: Other GI Medical History: Diverticulitis History: Renal Disease Psycho-Social History: No Pertinent History Male Reproductive Disorders: No Pertinent History Other Medical History: jayce cataract removal - Past Surgical History Past Surgical History: Yes Neuro Surgical History: No Pertinent History Cardiac: CABG, Pacemaker Respiratory: No Pertinent History Gastrointestinal: No Pertinent History Genitourinary: No Pertinent History Musculoskeletal: Orthopedic Surgery Male Surgical History: No Pertinent History Other Surgical History: bilat rotator cuff. vein surgery-groin. 'kidney tube repaired'-1968. double hernia repair - Social History Smoking Status: Former smoker Exposure to second hand smoke: No Drug Use: none Patient Lives Alone: No - Nursing Vital Signs Nursing Vital Signs: Initial Vital Signs Temperature 97.4 F 04/24/17 13:16 Pulse Rate 62 04/24/17 13:16 Respiratory Rate 14 04/24/17 13:16 Blood Pressure 151/67 04/24/17 13:16 O2 Sat by Pulse Oximetry 99 04/24/17 13:16 Pain Scale Pain Intensity 7 - Physical Exam General Appearance: no apparent distress, alert, other (well-developed well- nourished white alert oriented 3 in no acute distress head is tender to palpation posterior to right ear prominent occipital prominence) Eye Exam: PERRL/EOMI, eyes nml inspection Ears, Nose, Throat Exam: normal ENT inspection, TMs normal, pharynx normal, moist mucous membranes Neck Exam: normal inspection, non-tender, supple, full range of motion Respiratory Exam: normal breath sounds, lungs clear, No respiratory distress Cardiovascular Exam: regular rate/rhythm, normal heart sounds, normal peripheral pulses Gastrointestinal/Abdomen Exam: soft, normal bowel sounds, No tenderness, No mass Back Exam: normal inspection, normal range of motion, No CVA tenderness, No vertebral tenderness Extremity Exam: normal inspection, normal range of motion, pelvis stable Neurologic Exam: alert, oriented x 3, cooperative, chemical applicator II-XII nml as tested, normal mood/affect Skin Exam: normal color, warm, dry, No rash SpO2 Interpretation: normal (99%) SpO2: 99 Oxygen Delivery: Room Air - Course Nursing assessment & vital signs reviewed: Yes EKG Interpreted by Me: RATE (61 bpm), Other (EKG: Paced rhythm 61 bpm) - CT Exams Head CT Interpretation: Discussed w/radiologist (head CT without contrast: Impression : Nonacute senile brain. 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 May 29, 2014 exam.) Ordered Tests: Active Orders 24 hr Category Date Time Status IV Insertion STAT Care 04/24/17 13:35 Active HEAD WITHOUT CONTRAST [CT] Stat Exams 04/24/17 13:34 Completed CMP Stat Lab 04/24/17 13:30 Completed Erythrocyte Sedimentation Rate Stat Lab 04/24/17 13:30 Completed PROTIME WITH INR Stat Lab 04/24/17 13:30 Completed Medication Summary Discontinued Medications Generic Name Dose Route Start Last Admin Trade Name Adam PRN Reason Stop Dose Admin Acetaminophen 650 mg 04/24/17 13:54 04/24/17 14:00 Tylenol 325 Mg PO 04/24/17 13:55 650 mg STAT ONE Administration Acetaminophen Confirm 04/24/17 13:58 Tylenol 325 Mg Administered 04/24/17 13:59 Dose 650 mg .ROUTE .STHole 19-MED ONE Lab/Rad Data: Laboratory Result Diagrams 04/24/17 13:30 Laboratory Results 04/24/17 04/24/17 04/24/17 Range/Units 13:30 13:30 13:30 ESR 67 H (0-15) mm/hr INR 1.13 (0.8-3.0) Sodium 140 (136-145) mEq/L Potassium 3.3 L (3.5-5.1) mEq/L Chloride 101 (98-107) mEq/L Carbon Dioxide 24.9 (21-32) mEq/L Anion Gap 17.4 H (5-15) MEQ/L BUN 88 H (9-20) mg/dL Creatinine 3.67 H (0.55-1.30) mg/dl Estimated GFR 17 ML/MIN Glucose 104 (70-110) MG/DL Calcium 9.6 (8.5-10.1) mg/dL Total Bilirubin 0.90 (0.2-1.0) mg/dL AST 20 (15-37) U/L ALT 22 (12-78) U/L Alkaline Phosphatase 64 (46-116) U/L Serum Total Protein 7.5 (6.4-8.2) gm/dL Albumin 3.9 (3.4-5.0) g/dL - Progress Progress: improved Progress Note: 04/24/17 13:41 This is a 89-year-old white male with history of angina, arrhythmia, hyperlipidemia, high blood pressure with renal failure. He has been complaining of pain in his right side of his head posterior to the right ear symptoms for 2-3 days intermittently. His daughter is concerned that she feels like he might have fallen because he has a very prominent seminal prominence. Patient denies following. He did present to the infusion center today he had a CBC drawn today secondary to the patient was to receive Aranesp for chronic anemia. He was recently admitted secondary to congestive heart failure. On physical examination patient is alert oriented 3 he moves all extremities speech is normal I do not see abnormal neurologic findings. I've reviewed the patient's CBC which was drawn at around noon today he has a hemoglobin of 8.9 and a hematocrit of 27.1 white count is 5.8 Platelets were noted to be 96 Will go ahead and obtain CT of the patient's head sedimentation rate, and a CMP. 04/24/17 14:47 Patient with a BUN and creatinine of 88 3.67 last BUN was 77 Patient's CBC from earlier today white count 5.8 hemoglobin 8.9 hematocrit 27.1 Patient sedimentation rate is elevated but to 67 but not to the 100 range I've discussed the case briefly with Dr. Jay Will discharge patient Tylenol for pain continue to follow-up with Dr. Mendoza. Patient has an appointment with on May 05 to follow-up on his renal failure. And consideration for dialysis Currently patient is in no distress is sitting up and eating dinner 04/24/17 14:51 patient has an appointment with Dr. Mclaughlin on April 27 - Departure Time of Disposition: 14:48 Departure Disposition: Home Clinical Impression: Headache Qualifiers: Headache type: unspecified Headache chronicity pattern: unspecified pattern Intractability: not intractable Qualified Code(s): R51 - Headache Renal failure Qualifiers: Renal failure chronicity: unspecified chronicity Qualified Code(s): N19 - Unspecified kidney failure Condition: Fair Critical Care Time: No Referrals: RON MCLAUGHLIN [Primary Care Provider] - Additional Instructions: Return home. Tylenol every 4 hours as needed for pain. Follow-up with Dr. Mendoza. Follow-up with Dr. Best Return for acute distress or for severe symptoms
[2017-04-24] MEDS ORDERED: TYLENOL 325 MG PO ONE (13:54)
[2017-04-24] MEDS ORDERED: TYLENOL 325 MG ONE (13:58)
--- NOTE | 2017-04-24 14:02 | XRAY ---
Indication: Posterior headache. Status post fall. Multiple contiguous axial images obtained through the head without contrast. Comparison: July 15, 2016. Stable age-appropriate global atrophy and mild periventricular degenerative micro-ischemia bilaterally. There is now a small focus of encephalomalacia in the right cerebellum from old infarct previously obscured by motion artifact. No acute intracranial hemorrhage, abnormal extra-axial fluid collection, or mass effect. Fourth ventricle is midline without hydrocephalus. Bony calvarium intact. Visualized paranasal sinuses and mastoid air cells are clear. Impression: Nonacute senile brain. 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 May 29, [address] DI 52.29
[2017-04-24 14:17] LABS: INR 1.13 (0.8-3.0); PROTIME 12.6 SECONDS (8.83-12.87)
[2017-04-24 14:25] LABS: ALBUMIN 3.9 g/dL (3.4-5.0); ANION GAP 17.4 MEQ/L (5-15); BILIRUBIN,TOTAL 0.9 mg/dL (0.2-1.0); Carbon Dioxide 24.9 mEq/L (21-32); Potassium 3.3 mEq/L (3.5-5.1); Total Protein 7.5 gm/dL (6.4-8.2)
[2017-04-24 15:09] VITALS: BP 148/65; PULSE 64; O2SAT 96
== END 2017-04-24 15:18 | disposition home or self-care (01) ==
LOC: ED 13:08
DX: R51 Headache (principal); N19 Unspecified kidney failure; E78.5 Hyperlipidemia, unspecified; I10 Essential (primary) hypertension; I50.9 Heart failure, unspecified; Z95.1 Presence of aortocoronary bypass graft; Z79.899 Other long term (current) drug therapy; E78.00 Pure hypercholesterolemia, unspecified
CPT/HCPCS: 36000; 36415; 70450; 80053; 85610; 85652; 99284; A9270-GY